=== PATIENT | female | born 1990 | race Caucasian/White ===

== ENCOUNTER 2017-01-16 12:57 | Emergency (ER) | payer OTHER ==
[~2017-01-16 12:57] MED LIST: NO MEDS; NORCO 5-325 TA1 EACH PO; NORCO 5/325 TAB1 TAB PO; PRENATAL1 EACH PO
[2017-01-16] MEDS ORDERED: PRENATAL 19 TA1 EACH PO (13:11)
[2017-01-16 15:12] LABS: URINE APPEARANCE HAZY; URINE BILIRUBIN NEGATIVE (NEG); URINE BLOOD MODERATE (NEG); URINE COLOR YELLOW; URINE GLUCOSE (UA) NEGATIVE (NEG); URINE KETONE LARGE (NEG); URINE LEUKOCYTE ESTERASE POSITIVE (NEG); URINE NITRITE NEGATIVE (NEG); URINE PROTEIN SMALL (NEG); URINE SPECIFIC GRAVITY 1.025 (1.003-1.030)
[2017-01-16 15:18] LABS: URINE MUCUS 2+
[2017-05-07] MEDS ORDERED: PROBIOTIC1 EA10 (22:49)
[2017-06-11] MEDS ORDERED: LEXAPRO5 M1 PO (18:49)
[2017-06-13] MEDS ORDERED: IBUPROFEN800 M1 PO (10:46)
== END 2017-01-16 15:35 ==
LOC: EDMED 12:57
PROVIDERS: Physician Assistant
DX: O9A.212 Injury, poisoning and certain other consequences of external causes complicating pregnancy, second trimester (principal); S16.1XXA Strain of muscle, fascia and tendon at neck level, initial encounter; O26.892 Other specified pregnancy related conditions, second trimester; R10.2 Pelvic and perineal pain; Z3A.18 18 weeks gestation of pregnancy; V49.40XA Driver injured in collision with unspecified motor vehicles in traffic accident, initial encounter; Y92.410 Unspecified street and highway as the place of occurrence of the external cause